=== PATIENT | male | born 1955 | race Caucasian/White ===

== ENCOUNTER → 2017-12-21 | Outpatient (CLI) | payer OTHER ==
[~2017-12-21] MED LIST: MOBIC15 MG PO; NOHOMEMEDICATIONS; NORCO 5-325 TA1 EACH PO; OMEPRAZOLE 20 M20 M1 PO; PROSCAR 5MG TABL5 MG PO; TESTIM5 GM TOP; VALACYCLOVIR500 MG PO; XANAX 0.5 MG0.5 MG PO
== END ==
LOC: M.MRI 06:54
DX: S46.212A Strain of muscle, fascia and tendon of other parts of biceps, left arm, initial encounter (principal); M19.022 Primary osteoarthritis, left elbow; X58.XXXA Exposure to other specified factors, initial encounter; Y93.89 Activity, other specified; Y92.89 Other specified places as the place of occurrence of the external cause; Y99.8 Other external cause status

== ENCOUNTER → 2018-01-05 | Day surgery (SDC) | payer OTHER ==
[2018-01-05 11:20] LABS: HEMATOCRIT 49.4 % (42.0-52.0); HEMOGLOBIN 16.8 gm/dL (14.0-18.0); MCH 33.5 pg (26.0-34.0); MCV 98.7 fL (80.0-100.0); MPV 6.9 fl. (7.2-11.1); RDW-CV 12.6 % (10.5-14.5); WBC 6.6 thou/uL (4.0-11.0)
[2018-01-05 11:25] LABS: CALCIUM 8.9 mg/dL (8.5-10.1); CREATININE 1.2 mg/dL (0.6-1.3)
[2018-01-05 11:30] LABS: ALBUMIN 3.8 g/dL (3.4-5.0); TOTAL BILIRUBIN 0.9 mg/dL (<0.1-1.0); TOTAL PROTEIN 7.1 g/dL (6.4-8.2)
--- NOTE | 2018-01-05 14:41 | EKG ---
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: : 1955 Requested By: Koby Castillo Order Number: [id number] Reading MD: Philip Espinal Measurements Intervals Harrison Rate: 76 P: 68 VT: 180 QRS: -46 QRSD: 101 T: 34 QT: 378 QTc: 426 Interpretive Statements Sinus rhythm Left axis deviation Low voltage, extremity leads Abnormal R-wave progression, late transition Compared to ECG 07/04/2008 09:31:53 Left-axis deviation now present Low QRS voltage now present Right-axis deviation no longer present Electronically Signed On 01-05-2018 14:41:33 CDT by Philip Espinal [email or web address] <ELECTRONICALLY SIGNED> By: Philip Espinal MD, [facility] 01/05/18 1441 1117 [id number] Philip Espinal MD, [facility] /EPI
--- NOTE | 2018-01-24 12:00 | OP ---
[facility] [address] [place] [address] OPERATIVE REPORT Name: ETIENNE GAYLEOLNICOLAS Day Room: [facility]#: [id number] Admission: 01/05/18 Attend Phys: Reji Joseph Discharge: Date of : 59 Report #: [id number] THIS REPORT FOR: //name// CC: Koby Chance DATE OF SERVICE: 01/05/2018 PREOPERATIVE DIAGNOSIS: Left distal biceps rupture. POSTOPERATIVE DIAGNOSIS: Left distal biceps rupture. PROCEDURES: Left distal biceps repair. IMPLANTS: Arthrex tension slide Endobutton with a 7 mm BioComposite interference screw. SURGEON: Koby Castillo DO BALANCE WEIGHER: Jan Gonzalez/Thom Cooper DO ANESTHESIA: General. FLUIDS: Crystalloid. ESTIMATED BLOOD LOSS: 20 mL. DRAINS: None. SPECIMENS: None. COMPLICATIONS: None. CONDITION: Stable. DISPOSITION: PACU to home. ANTIBIOTICS: 2 grams Ancef IV. INDICATIONS: The patient is a pleasant 62-year-old male, avid weightlifter. He has had complaints of increasing left elbow pain over the past few weeks. He has subsequently been evaluated with an MRI, which confirms a full-thickness distal biceps rupture with 2.2 cm of retraction. Reviewed the details of the condition and treatment options with him thoroughly. He has verbalized understanding of the risks, benefits, alternatives and expected outcomes of surgery and wants to proceed. [address] [place] [address] OPERATIVE REPORT Name: SVETLANA GAYLE Room: [facility]#: [id number] Admission: 01/05/18 Attend Phys: Reji Joseph Discharge: Date of : 59 Report #: [id number] FINDINGS: When we evaluated the elbow intraoperatively, he was noted to have large scar like pseudocapsule around the distal biceps tendon, which was completely ruptured from the radial tuberosity. There was a yellowish brown seroma that was encountered, which we evacuated. The tendon was otherwise healthy in appearance other than it had typical appearing scarred stump consistent with a full-thickness rupture. DESCRIPTION OF PROCEDURE: The patient was brought to the operating suite, placed in supine position on the OR table, given the benefit of general anesthetic. His left upper extremity received a well-padded tourniquet to the arm and this was inflated for the duration of the procedure, it was total of 41 minutes. We prepped and draped the limb in usual sterile fashion with a chlorhexidine scrub, alcohol rinse, ChloraPrep paint. A time-out was utilized to ensure proper operative patient, procedure and extremity. Once antibiotic administration was verified, we began by making a standard L-shaped incision, cutting transversely across the antecubital fossa distally along the radial shaft. We carefully dissected through the venous plexus in the antecubital fossa and readily identified his distal biceps tendon. It was quite thickened and had the aforementioned pseudocapsule around it. We entered this and encountered the seroma consistent with a tendon rupture. We evacuated that, we had released the pseudocapsule from the bone, which was devoid of any tendon fibers at the radial tuberosity. We then freshened up the tendon edge, trimmed it down to an approximate 7 mm diameter and whipstitched it with #2 FiberWire. We then turned our attention to the radial tuberosity where we had good exposure of this with [facility] retractors. We placed a Hohmann on the ulnar border, but not along the radial border to protect the PIN nerve. We held as a hand in maximal supination and placed our spade tip guidewire bicortically across the radius at the site of the radial tuberosity. We then overreamed this with an 8 mm reamer and thoroughly irrigated all bony debris and removed it as best as possible. We then loaded our Endobutton with the suture limbs and then passed the Endobutton through the drill hole in the far cortex, allowed it to engage in the far cortex and cinched our tendon down into the socket nicely. We had about 15 mm of tendon in the tunnel. We then passed the single suture limb of our FiberWire back through the tendon and tied it down again. We then placed a 7 mm BioComposite tenodesis screw alongside the tendon in the socket as well. This was a very snug bite with a nice squeak for feedback. We then tied our suture over the top of the screw as well for backup fixation. We at this point took the elbow through full range of motion. The tendon was well adhered with no slippage. We then thoroughly irrigated the wound. We deflated our tourniquet. Hemostasis was achieved with electrocautery. We then closed with 3-0 Vicryl subcuticularly and a running 3-0 V-Loc suture subcuticularly as well. [address] [address] OPERATIVE REPORT Name: SVETLANA GAYLE Room: [facility]#: [id number] Admission: 01/05/18 Attend Phys: Reji Joseph Discharge: Date of : 59 Report #: [id number] was applied to the skin. A sterile dressing was applied. The patient was transferred to PACU in stable condition. <ELECTRONICALLY SIGNED> By: Enrique Lopez DO 01/24/18 1200 1414 1443Koby Castillo DO /nt
== END | disposition home or self-care (01) ==
LOC: M.SUR 06:59
PROVIDERS: Orthopaedic Surgery
DX: S46.212A Strain of muscle, fascia and tendon of other parts of biceps, left arm, initial encounter (principal); Z79.899 Other long term (current) drug therapy; X58.XXXA Exposure to other specified factors, initial encounter; Y93.89 Activity, other specified; Y92.89 Other specified places as the place of occurrence of the external cause; Y99.8 Other external cause status

== ENCOUNTER → 2018-06-14 | Outpatient (CLI) | payer OTHER | LOC: M.MRI 08:10 | DX: M50.122 Cervical disc disorder at C5-C6 level with radiculopathy (principal); M48.02 Spinal stenosis, cervical region ==

== ENCOUNTER → 2018-08-21 | Outpatient (CLI) | payer OTHER | LOC: M.ULTRA 07:06 | DX: K80.20 Calculus of gallbladder without cholecystitis without obstruction (principal) ==

== ENCOUNTER → 2019-01-01 | Outpatient (CLI) | payer OTHER | LOC: M.MRI 11:18 | DX: M75.21 Bicipital tendinitis, right shoulder (principal); Z98.890 Other specified postprocedural states; W19.XXXA Unspecified fall, initial encounter ==